=== PATIENT | male | born 1985 | race Caucasian/White ===

== ENCOUNTER 2017-09-10 22:13 | Emergency (ER) | payer SELFPAY ==
[2017-09-10 22:27] VITALS: BP 135/76; PULSE 64; RESP 16; TEMP 98.4; O2SAT 98
--- NOTE | 2017-09-10 22:41 | PD ---
HPI Chief Complaint: GI Complaint Time Seen by Provider: 22:27 Travel History International Travel<30 days: No Contact w/Intl Traveler<30days: No Traveled to known affect area: No History of Present Illness HPI The patient is a 32-year-old male who presents to the emergency department for right lower quadrant abdominal pain that radiates into the scrotum. The patient states his symptoms started earlier today at work. The pain initially was in the right lower quadrant, now radiates to the back and down to the right scrotum. He does complain of right testicular pain with difficulty urinating. He denies any actual dysuria, frequency, urgency, or penile drainage. The patient does have a history of previous kidney stones with somewhat similar symptoms. He does complain of mild nausea secondary to the pain but denies any vomiting. He does have a history of previous periumbilical hernia repair as well as previous vasectomy. Symptoms are moderate. He denies any associated fever, chills, or sweats. There are no current alleviating factors. The patient recently moved from [place] to the local area 1 month ago to work for a [employer]. PFSH Past Medical History Narrative Medical Nephrolithiasis Past Surgical History Narrative Surgical Umbilical hernia repair, vasectomy Social History Tobacco Use: Yes Allergies-Medications (Allergen,Severity, Reaction): Coded Allergies: No Known Allergies (Unverified , 09/10/17) Reported Meds & Prescriptions Reported Meds & Active Scripts Active Ibuprofen 600 Mg Tab 600 Mg PO Q6H PRN [place] (Hydrocodone-Acetaminophen) 5 Mg-325 Mg Tab 1 Tab PO Q6H PRN Flomax (Tamsulosin HCl) 0.4 Mg Cap 0.4 Mg PO HS 7 Days Review of Systems Except as stated in HPI: all other systems reviewed are Neg General / Constitutional: No: Fever, Chills Cardiovascular: No: Chest Pain or Discomfort Respiratory: No: Shortness of Breath Gastrointestinal: Positive: Nausea, Abdominal Pain, No: Vomiting, Diarrhea Genitourinary: Positive: Pelvic Pain (Right testicular pain), Other ( Difficulty urinating), No: Urgency, Frequency, Dysuria, Hematuria Skin: No Rash Physical Exam Narrative GENERAL: Awake, alert, pleasant 32-year-old male who appears his stated age and is in no acute respiratory distress. Appears in mild discomfort. SKIN: Focused skin assessment warm/dry. HEAD: Atraumatic. Normocephalic. EYES: Pupils equal and round. No injection or drainage. ENT: No nasal bleeding or discharge. Mucous membranes pink and moist. NECK: Trachea midline. No JVD. CARDIOVASCULAR: Regular rate and rhythm. No murmur appreciated. RESPIRATORY: No accessory muscle use. Clear to auscultation. Breath sounds equal bilaterally. GASTROINTESTINAL: Abdomen soft, non-tender, nondistended. No guarding or rigidity. Negative McBurney's. Negative Mock's. Back: No CVA tenderness. Genitourinary: Circumcised phallus. Tenderness of the right testicle and minimal tenderness of the right epididymis. MUSCULOSKELETAL: No obvious deformities. No clubbing. No cyanosis. No edema. NEUROLOGICAL: Awake and alert. No obvious cranial nerve deficits. Motor grossly within normal limits. Normal speech. PSYCHIATRIC: Appropriate mood and affect; insight and judgment normal. Data Data Last Documented VS Vital Signs Date Time Temp Pulse Resp B/P (MAP) Pulse Ox O2 Delivery O2 Flow Rate FiO2 09/11/17 02:03 09/10/17 23:00 72 16 98 Room Air 09/10/17 22:27 98.4 Orders Orders Complete Blood Count With Diff (09/10/17 22:31) Comprehensive Metabolic Panel (09/10/17 22:31) Urinalysis - C+S If Indicated (09/10/17 22:31) Gc And Chlamydia Pcr (09/10/17 22:31) Ct Abd/Pel W/O Iv Contrast (09/10/17 22:31) Us Testicles W Doppler (09/10/17 22:31) Iv Access Insert/Monitor (09/10/17 22:31) Ketorolac Inj (Toradol Inj) (09/10/17 22:45) Sodium Chloride 0.9% Flush (Ns Flush) (09/10/17 22:45) Morphine Inj (Morphine Inj) (09/10/17 22:45) Metoclopramide Inj (Reglan Inj) (09/10/17 22:45) Sodium Chlor 0.9% 1000 Ml Inj (Ns 1000 M (09/10/17 22:45) Morphine Inj (Morphine Inj) (09/11/17 00:15) Morphine Inj (Morphine Inj) (09/11/17 00:30) Sodium Chlor 0.9% 1000 Ml Inj (Ns 1000 M (09/11/17 00:45) Ed Discharge Order (09/11/17 01:47) Labs Laboratory Tests Test 09/10/17 00:38 09/10/17 23:55 09/11/17 01:25 White Blood Count 12.1 TH/MM3 Red Blood Count 5.15 MIL/MM3 Hemoglobin 15.0 GM/DL Hematocrit 44.8 % Mean Corpuscular Volume 87.0 FL Mean Corpuscular Hemoglobin 29.1 PG Mean Corpuscular Hemoglobin Concent 33.4 % Red Cell Distribution Width 13.9 % Platelet Count 159 TH/MM3 Mean Platelet Volume 9.8 FL Neutrophils (%) (Auto) 85.2 % Lymphocytes (%) (Auto) 10.0 % Monocytes (%) (Auto) 4.3 % Eosinophils (%) (Auto) 0.3 % Basophils (%) (Auto) 0.2 % Neutrophils # (Auto) 10.3 TH/MM3 Lymphocytes # (Auto) 1.2 TH/MM3 Monocytes # (Auto) 0.5 TH/MM3 Eosinophils # (Auto) 0.0 TH/MM3 Basophils # (Auto) 0.0 TH/MM3 CBC Comment DIFF FINAL Differential Comment Blood Urea Nitrogen 11 MG/DL Creatinine 1.15 MG/DL Random Glucose 101 MG/DL Total Protein 7.6 GM/DL Albumin 4.0 GM/DL Calcium Level 8.5 MG/DL Alkaline Phosphatase 105 U/L Aspartate Amino Transf (AST/SGOT) 32 U/L Alanine Aminotransferase (ALT/SGPT) 42 U/L Total Bilirubin 0.5 MG/DL Sodium Level 142 MEQ/L Potassium Level 4.0 MEQ/L Chloride Level 109 MEQ/L Carbon Dioxide Level 24.8 MEQ/L Anion Gap 8 MEQ/L Estimat Glomerular Filtration Rate 73 ML/MIN Urine Color YELLOW Urine Turbidity CLOUDY Urine pH 5.0 Urine Specific Switchback 1.029 Urine Protein 30 mg/dL Urine Glucose (UA) NEG mg/dL Urine Ketones TRACE mg/dL Urine Occult Blood LARGE Urine Nitrite NEG Urine Bilirubin NEG Urine Leukocyte Esterase NEG Urine RBC 125 /hpf Urine WBC 3 /hpf Urine Squamous Epithelial Cells <1 /hpf Urine Calcium Oxalate Crystals RARE /hpf Urine Mucus MOD /lpf Microscopic Urinalysis Comment CULT NOT INDICATED Chlamydia trachomatis DNA (PCR) NOT DETECTED Neisseria gonorrhoeae DNA (PCR) NOT DETECTED [facility] Medical Decision Making Medical Screen Exam Complete: Yes Emergency Medical Condition: Yes Medical Record Reviewed: Yes Interpretation(s) Last Impressions Scrotum Ultrasound 09/10/172230 Signed Impressions: CONCLUSION: 1. The testicles appear normal. Blood flow is seen bilaterally. 2. Mild fluid in the left inguinal canal. There are minimal hydroceles. Abdomen/Pelvis CT 09/10/172230 Signed Impressions: CONCLUSION: 1. 5 mm stone at the right ureter at the level the pelvic inlet with moderate dilatation of the collecting system and more proximal right ureter. 2. Tiny 2 mm nonobstructing stone seen in the collecting systems bilaterally. 3. Nonspecific 1.6 and left adrenal gland mass. 4. Hernia mesh from prior hernia surgery at the lower anterior abdominal wall pelvis. 5. Pars defects at L5 with spondylolisthesis. Laboratory Tests Test 09/10/17 00:38 09/10/17 23:55 09/11/17 01:25 White Blood Count 12.1 TH/MM3 Red Blood Count 5.15 MIL/MM3 Hemoglobin 15.0 GM/DL Hematocrit 44.8 % Mean Corpuscular Volume 87.0 FL Mean Corpuscular Hemoglobin 29.1 PG Mean Corpuscular Hemoglobin Concent 33.4 % Red Cell Distribution Width 13.9 % Platelet Count 159 TH/MM3 Mean Platelet Volume 9.8 FL Neutrophils (%) (Auto) 85.2 % Lymphocytes (%) (Auto) 10.0 % Monocytes (%) (Auto) 4.3 % Eosinophils (%) (Auto) 0.3 % Basophils (%) (Auto) 0.2 % Neutrophils # (Auto) 10.3 TH/MM3 Lymphocytes # (Auto) 1.2 TH/MM3 Monocytes # (Auto) 0.5 TH/MM3 Eosinophils # (Auto) 0.0 TH/MM3 Basophils # (Auto) 0.0 TH/MM3 CBC Comment DIFF FINAL Differential Comment Blood Urea Nitrogen 11 MG/DL Creatinine 1.15 MG/DL Random Glucose 101 MG/DL Total Protein 7.6 GM/DL Albumin 4.0 GM/DL Calcium Level 8.5 MG/DL Alkaline Phosphatase 105 U/L Aspartate Amino Transf (AST/SGOT) 32 U/L Alanine Aminotransferase (ALT/SGPT) 42 U/L Total Bilirubin 0.5 MG/DL Sodium Level 142 MEQ/L Potassium Level 4.0 MEQ/L Chloride Level 109 MEQ/L Carbon Dioxide Level 24.8 MEQ/L Anion Gap 8 MEQ/L Estimat Glomerular Filtration Rate 73 ML/MIN Urine Color YELLOW Urine Turbidity CLOUDY Urine pH 5.0 Urine Specific Switchback 1.029 Urine Protein 30 mg/dL Urine Glucose (UA) NEG mg/dL Urine Ketones TRACE mg/dL Urine Occult Blood LARGE Urine Nitrite NEG Urine Bilirubin NEG Urine Leukocyte Esterase NEG Urine RBC 125 /hpf Urine WBC 3 /hpf Urine Squamous Epithelial Cells <1 /hpf Urine Calcium Oxalate Crystals RARE /hpf Urine Mucus MOD /lpf Microscopic Urinalysis Comment CULT NOT INDICATED Chlamydia trachomatis DNA (PCR) NOT DETECTED Neisseria gonorrhoeae DNA (PCR) NOT DETECTED Differential Diagnosis Differential diagnosis includes nephrolithiasis, hydronephrosis, UTI, urethritis , epididymitis, testicular torsion, hydrocele, varicocele, incarcerated hernia. Narrative Course IV was established, labs are drawn and sent, and the patient was placed on cardiac telemetry monitoring and continuous pulse oximetry monitoring. The patient was administered morphine, Toradol, Reglan, and IV fluids. UA was ordered. Ultrasound of the scrotum was ordered. Ultrasound was noted, no evidence of epididymitis or testicular torsion. CT reveals a stone in the right ureter that measures 5 mm. The patient was reassessed at 12:10 AM, still has moderate pain at 5/10, therefore, patient was administered a second dose of pain medication. The patient will be discharged home on Flomax, [place], and ibuprofen. He is advised to follow-up with a urologist. He will be provided a strainer. Diagnosis Primary Impression: Ureterolithiasis Patient Instructions: General Instructions Additional Instructions: Please provide the patient a copy of his CT results and lab results at discharge. Medications as directed. Follow-up with your primary physician and/ or urology. Work excuse for 1 day. Please provide the patient a strainer at discharge. Return if symptoms worsen or progress. Med/Other Pt SpecificInfo: Prescription(s) given Scripts Ibuprofen (Ibuprofen) 600 Mg Tab 600 MG PO Q6H Y for Pain/Inflammation, #20 TAB 0 Refills Prov: Geo Marroquin MD 09/10/17 Hydrocodone-Acetaminophen ([place]) 5 Mg-325 Mg Tab 1 TAB PO Q6H Y for PAIN, #12 TAB 0 Refills Prov: Geo Marroquin MD 09/10/17 Tamsulosin (Flomax) 0.4 Mg Cap 0.4 MG PO HS for Manage Prostate Problems for 7 Days, #7 CAP 0 Refills Prov: Geo Marroquin MD 09/10/17 Disposition: 01 DISCHARGE HOME Condition: Stable Geo Marroquin MD Sep 10, 2017 22:41
[2017-09-10] MEDS ORDERED: SODIUM CHLOR 0.9% 1000 ML INJ 1,000 ML IV ONE (22:45)
[2017-09-10] MEDS ORDERED: SODIUM CHLORIDE 0.9% FLUSH 10 ML FLUSH IVF PRN (22:45)
[2017-09-10] MEDS ORDERED: METOCLOPRAMIDE HCL 10 MG/2 ML VIAL IV PUSH ONE (22:45)
[2017-09-10] MEDS ORDERED: MORPHINE SULFATE 4 MG/ML INJ IV PUSH ONE (22:45)
[2017-09-10] MEDS ORDERED: KETOROLAC TROMETHAMINE 30 MG/ML (IVP) VIAL IVP ONE (22:45)
[2017-09-10 23:00] VITALS: BP 130/70; PULSE 72; RESP 16; O2SAT 98
[2017-09-10 23:22] LABS: AUTOMATED NEUTROPHIL # 10.3 TH/MM3 (1.8-7.7); BASOPHIL % 0.2 % (0.0-2.0); EOSINOPHIL % 0.3 % (0.0-4.0); HEMATOCRIT 44.8 % (39.0-51.0); LYMPHOCYTE # 1.2 TH/MM3 (1.0-4.8); MEAN CORPUSCULAR HEMOGLOBIN 29.1 PG (27.0-34.0); MEAN CORPUSCULAR HGB CONC 33.4 % (32.0-36.0); MEAN PLATELET VOLUME 9.8 FL (7.0-11.0); MONO % 4.3 % (0.0-8.0); MONOCYTE # 0.5 TH/MM3 (0-0.9); NEUT % 85.2 % (16.0-70.0); PLATELET COUNT 159 TH/MM3 (150-450); RED BLOOD COUNT 5.15 MIL/MM3 (4.50-5.90); RED CELL DISTRIBUTION WIDTH 13.9 % (11.6-17.2); WHITE BLOOD COUNT 12.1 TH/MM3 (4.0-11.0)
--- NOTE | 2017-09-10 23:40 | RADRPT ---
EXAM DATE: 09/10/2017 11:29 PM EDT AGE/SEX: 32 years / Male INDICATIONS: Testicular pain. CLINICAL DATA: This is the patient's initial encounter. Patient reports that signs and symptoms have been present for 1 day and indicates a pain score of 10/10. MEDICAL/SURGICAL HISTORY: . Bipolar disorder. . Hernia repair. COMPARISON: No prior exams available for comparison. MEASUREMENTS (cm x cm x cm): Right Testicle:__3.4 x 2.5 x 4.7 cm Left Testicle:__3.7 x 2.3 x 3.7 cm FINDINGS: Right Testicle: Homogeneous echotexture without intra or extratesticular mass. Blood flow is symmet dagoberto and within normal limits. There is a minimal hydrocele. No varicocele is seen. Epididymis is wi thin normal limits. Left Testicle: Homogeneous echotexture without intra or extratesticular mass. Blood flow is symmetr ic and within normal limits. There is a minimal hydrocele. No varicocele is seen. Epididymis is wit hin normal limits. There is a mild amount of fluid within the left inguinal canal. Scrotum: Within normal limits. CONCLUSION: 1. The testicles appear normal. Blood flow is seen bilaterally. 2. Mild fluid in the left inguinal canal. There are minimal hydroceles. Electronically signed by: Rashaun Brewster MD 09/10/2017 11:39 PM EDT
[2017-09-10] MEDS ORDERED: IBUP-232 PO (23:59)
[2017-09-10] MEDS ORDERED: NORC5TAB PO (23:59)
[2017-09-10] MEDS ORDERED: TAMS5CAP PO (23:59)
--- NOTE | 2017-09-11 00:10 | RADRPT ---
EXAM DATE: 09/10/2017 11:50 PM EDT AGE/SEX: 32 years / Male INDICATIONS: Right flank pain. CLINICAL DATA: This is the patient's initial encounter. Patient reports that signs and symptoms have been present for 1 day and indicates a pain score of 9/10. MEDICAL/SURGICAL HISTORY: Renal calculi. . RADIATION DOSE: 28.89 CTDI (mGy) ; High dose protocol ; Combined studies COMPARISON: No prior exams available for comparison. TECHNIQUE: Multiple contiguous axial images were obtained through the abdomen. Images were obtained using multiple row detector helical technique. Using dose reduction techniques, radiation dose was ke pt as low as reasonably achievable to obtain optimal diagnostic quality images. FINDINGS: Lower Lungs: The visualized lower lungs are clear. Liver: The liver has a homogeneous density without space-occupying lesion. There is no dilation of th e biliary tree. Spleen: Homogeneous density without enlargement. Pancreas: Unremarkable without mass or calcification. Kidneys: There are tiny 2 mm nonobstructing renal stones in the collecting systems bilaterally. Ther e is moderate dilatation of the right collecting system and proximal right ureter. Just above the lev el the pelvic inlet in the proximal right ureter there is a 5 mm stone. Adrenal Glands: There is a 1.6 cm left adrenal gland mass. This measures 17 Hounsfield units. It is nonspecific. The right adrenal gland is normal. Aorta: The aorta and proximal iliac vessels are grossly unremarkable without aneurysmal dilation. Bowel/Mesentery: The bowel loops are grossly unremarkable. The cecum and sigmoid colon have a normal configuration. Abdominal Wall: There is hernia mesh in the undersurface of the anterior abdominal wall in the lower pelvis. Retroperitoneum: No evidence of adenopathy in the retrocrural, para-aortic, or deep pelvic regions. Bladder: Contours are smooth. Reproductive Organs: No abnormal masses or calcifications seen. Inguinal: The inguinal region is unremarkable without evidence of adenopathy. Bony Structures: Pars defects are seen at L5 with spondylolisthesis. CONCLUSION: 1. 5 mm stone at the right ureter at the level the pelvic inlet with moderate dilatation of the alicia ecting system and more proximal right ureter. 2. Tiny 2 mm nonobstructing stone seen in the collecting systems bilaterally. 3. Nonspecific 1.6 and left adrenal gland mass. 4. Hernia mesh from prior hernia surgery at the lower anterior abdominal wall pelvis. 5. Pars defects at L5 with spondylolisthesis. Electronically signed by: Rashaun Brewster MD 09/11/2017 12:09 AM EDT
[2017-09-11] MEDS ORDERED: MORPHINE SULFATE 2 MG/ML SYRINGE IV PUSH ONE (00:15)
[2017-09-11 00:29] LABS: ALKALINE PHOSPHATASE 105 U/L (45-117); TOTAL BILIRUBIN ADULT 0.5 MG/DL (0.2-1.0); TOTAL PROTEIN 7.6 GM/DL (6.4-8.2)
[2017-09-11] MEDS ORDERED: MORPHINE SULFATE 4 MG/ML INJ IV PUSH ONE (00:30)
[2017-09-11 00:41] LABS: ALT (GPT) 42 U/L (12-78); AST (GOT) 32 U/L (15-37); BICARBONATE 24.8 MEQ/L (21.0-32.0); BLOOD UREA NITROGEN 11 MG/DL (7-18); CALCIUM 8.5 MG/DL (8.5-10.1); CHLORIDE 109 MEQ/L (98-107); CREATININE 1.15 MG/DL (0.60-1.30); GLOMERULAR FILTRATION RATE 73 ML/MIN (>89); GLUCOSE,RANDOM 101 MG/DL (74-106); SODIUM (NA) 142 MEQ/L (136-145)
[2017-09-11] MEDS ORDERED: SODIUM CHLOR 0.9% 1000 ML INJ 1,000 ML IV ONE (00:45)
[2017-09-11 01:42] LABS: BILIRUBIN, URINE NEG (NEG); BLOOD, URINE LARGE (NEG); CALCIUM OXALATE CRYSTALS,URINE RARE /hpf; GLUCOSE,URINE NEG (NEG); KETONE, URINE TRACE mg/dL (NEG); MUCUS URINE MOD /lpf (OCC); NITRITE,URINE NEG (NEG); SQUAMOUS EPITHELIAL CELL URINE <1 /hpf (0-5); URINE COLOR YELLOW (YELLW/STRAW); URINE LEUKOCYTE ESTERASE NEG (NEG)
== END 2017-09-11 02:47 | disposition home or self-care (01) ==
LOC: NEPD 22:13
DX: N20.1 Calculus of ureter (principal); N50.811 Right testicular pain; R11.0 Nausea; N43.3 Hydrocele, unspecified; E27.9 Disorder of adrenal gland, unspecified; K42.9 Umbilical hernia without obstruction or gangrene; F31.9 Bipolar disorder, unspecified; Z87.442 Personal history of urinary calculi; Z72.0 Tobacco use
CPT/HCPCS: 74176; 76870; 80053; 81001; 85025; 87491; 87591; 93975; 96361; 96374; 96375; 96376; 99285; J1885; J2270; J2765; J7030